=== PATIENT | male | born 1960 | race Caucasian/White ===

== ENCOUNTER 2017-06-22 03:37 | Inpatient (IN) | payer SELFPAY ==
[2017-06-22] VITALS (11 sets, daily range): BP systolic 97–129; BP diastolic 40–83
[~2017-06-22] VITALS: Ht 175.3 cm; Wt 55.6 kg
[~2017-06-22 03:37] MED LIST: ACET-93 PO; ATOR40TA70 PO; BACL10TA PO; CALC-654 PO; CALC-80; CLIN300C11 PO; CYCL10TA9 PO; DICL75TA2 PC; DICL75TA2 PO; FERR-84 PO; GABA-488 PO; HYDR-34; METF500T4 PO; MORP60TA28 PO; OMEP20CA6 PO; ONDA4TAB8 SL; OXYC-202 PO; OXYC-465 PO; OXYC10TA7 PO; PANT40TA2 PO; PEPCID; RANI150T11 PO; RANI150T90 PO; SUCR1TAB36 PO; TRAM-42 PO
--- OUTSIDE RECORDS SUMMARY | 2017-06-22 03:46 | XMS REPORT ---
Author JT Torres [facility] eClinicalWorks Address Unknown Phone Unavailable Care Team Providers Care Computer Forensics Examiner Name Role Phone JT SAHA CP Unavailable Allergies, Adverse Reactions, Alerts Substance Reaction Event Type Penicillin V Potassium Info Not Available Drug Allergy Problems Problem Type Condition Code Onset Dates Condition Status Problem Diabetes E11.9 Active Problem Anemia D64.9 Active Problem Edema R60.9 Active Problem Spasm of muscle 728.85 Active Assessment Anemia D64.9 Active Problem Pain in thoracic spine 724.1 Active Problem Diabetes mellitus without mention of complication, type II or unspecified type, not stated as uncontrolled 250.00 Active Medications Medication Code System Code Instructions Start Date End Date Status Dosage Metformin HCl [facility] 76568303688 500 MG TAKE ONE TABLET BY MOUTH TWICE DAILY AFTER FOOD Calcium [facility] 12092-65591 600 MG Orally Twice a day 1 tablet with meals Flexeril [facility] 46310031446 10 MG Orally Three times a day 1 tablet Diclofenac Sodium [facility] [address]-01 75 MG September 08, 2013 1 tablet by Oral route 2 times per day PRN p c Diphenhydramine ND 0 Oral 1 tab Tylenol [facility] [address]-83 325 MG Orally every 6 hrs 1 tablet as needed Polysaccharide Iron Complex [facility] [address]-93 150 MG Orally Once a day Jun 02, 2015 1 capsule Lipitor [facility] 82444947882 40 MG 1 tablet by Oral route 1 time per day hs Doxylamine Succinate (Sleep) [facility] [address]-77 25 MG Orally Once a day 1 tablet at bedtime as needed Procedures Procedure Coding System Code Date VENIPUNCT, ROUTINE* CPT-4 48516 Jul 04, 2015 Office Visit, Est Pt., Level 4 CPT-4 22022 Jul 04, 2015 COMPLETE CBC W/AUTO DIFF WBC CPT-4 14334 Jul 04, 2015 Vital Signs Date/Time: Jul 04, 2015 Temperature 98.0 F Weight 150.0 lbs Height 69 in BMI 22.15 Index Blood Pressure Diastolic 82 mmHg Blood Pressure Systolic 130 mmHg Cardiac Monitoring Heart Rate 110 bpm Results Name Result Date Reference Range Unit Abnormality Flag ROUTINE VENIPUNCTURE CBC ----MCHC 29.0 29555388 31.5-35.7 g/dL L ----MCH 21.4 12347967 26.6-33.0 pg L ----Platelets 526 [id number] 150-379 x10E3/uL H ----RDW 16.3 95500478 12.3-15.4 % H ----Immature Granulocytes 0 79102291 % ----Immature Grans (Abs) 0.0 34347928 0.0-0.1 x10E3/uL ----Lymphs 30 96054312 % ----Monocytes 9 02320221 % ----Neutrophils 52 36238677 % ----Neutrophils (Absolute) 3.8 95664457 1.4-7.0 x10E3/uL ----Hematocrit 26.2 86188319 37.5-51.0 % L ----Lymphs (Absolute) 2.1 47702433 0.7-3.1 x10E3/uL ----MCV 74 63642042 79-97 fL L ----RBC 3.55 35563043 4.14-5.80 x10E6/uL L ----Eos 8 89354928 % ----Basos 1 88688902 % ----Hemoglobin 7.6 29778734 12.6-17.7 g/dL L ----Baso (Absolute) 0.1 [id number] 0.0-0.2 x10E3/uL ----WBC 7.3 99442475 3.4-10.8 x10E3/uL ----Monocytes(Absolute) 0.7 [id number] 0.1-0.9 x10E3/uL ----Eos (Absolute) 0.6 [id number] 0.0-0.4 x10E3/uL H Summary Purpose eClinicalWorks Submission
--- OUTSIDE RECORDS SUMMARY | 2017-06-22 03:47 | XMS REPORT ---
Author Author JT SAHA Organization eClinicalWorks Address Unknown Phone Unavailable Care Team Providers Care Stunt Woman Name Role Phone JT SAHA CP Unavailable Allergies No Known Allergies Problems Problem Type Condition Code Onset Dates Condition Status Problem Diabetes mellitus without mention of complication, type II or unspecified type, not stated as uncontrolled 250.00 Active Problem Spasm of muscle 728.85 Active Problem Pain in thoracic spine 724.1 Active Medications Medication Code System Code Instructions Start Date End Date Status Dosage MS Contin NDC [address]-95 60 MG 3 a day for week 1, 2 a day for week 2, 1 a day for week 3, 1/2 tab for week 4, then done every 8 hours September 14, 2014 1 tablet oxycodone NDC 0 10 mg 2 times a day for week 1, 1/2 tablet 2 times a day week 2, 1/2 tablet daily week 3, then done September 14, 2014 1 tablet Results No Known Results Summary Purpose eClinicalWorks Submission
--- OUTSIDE RECORDS SUMMARY | 2017-06-22 03:47 | XMS REPORT ---
Author JT Torres [facility] eClinicalWorks Address Unknown Phone Unavailable Care Team Providers Care Circular Clerk Name Role Phone JT SAHA CP Unavailable Allergies, Adverse Reactions, Alerts Substance Reaction Event Type Penicillin V Potassium Info Not Available Drug Allergy Problems Problem Type Condition Code Onset Dates Condition Status Problem Anemia D64.9 Active Problem Pain in thoracic spine 724.1 Active Problem Diabetes E11.9 Active Assessment Edema R60.9 Active Assessment Diabetes E11.9 Active Problem Diabetes mellitus without mention of complication, type II or unspecified type, not stated as uncontrolled 250.00 Active Problem Spasm of muscle 728.85 Active Medications Medication Code System Code Instructions Start Date End Date Status Dosage Calcium [facility]NOTE 2] 52[address]103 600 MG Orally Twice a day 1 tablet with meals Lipitor [facility]NOTE 2] 51876712162 40 MG 1 tablet by Oral route 1 time per day hs Metformin HCl [facility]NOTE 2] 21901795732 500 MG TAKE ONE TABLET BY MOUTH TWICE DAILY AFTER FOOD Diclofenac Sodium [facility][NOTE 2] [address]-73 75 MG September 08, 2013 1 tablet by Oral route 2 times per day PRN p c Tylenol [facility][NOTE 2] [address]-60 325 MG Orally every 6 hrs 1 tablet as needed Diphenhydramine ND 0 Oral 1 tab Doxylamine Succinate (Sleep) [facility]NOTE 2] [address]-58 25 MG Orally Once a day 1 tablet at bedtime as needed Polysaccharide Iron Complex [facility]NOTE 2] [address]-99 150 MG Orally Once a day Jun 02, 2015 1 capsule Gabapentin [facility]NOTE 2] 00213840944 300 MG Orally Three times a day 1 capsule Flexeril ND 22215831118 10 MG Orally Three times a day 1 tablet Procedures Procedure Coding System Code Date Office Visit, Est Pt., Level 3 CPT-4 12103 Jun 13, 2015 GLYCATED HEMOGLOBIN TEST CPT-4 21723 Jun 13, 2015 Vital Signs Date/Time: Jun 13, 2015 Temperature 98.7 F Weight 148 lbs Height 69 in BMI 21.85 Index Blood Pressure Diastolic 68 mmHg Blood Pressure Systolic 134 mmHg Cardiac Monitoring Heart Rate 120 bpm Results Name Result Date Reference Range Unit Abnormality Flag A1C (IN HOUSE) ----A1C IN HOUSE 6.3 [id number] 4.30 - 5.6 % ----Previous A1c 6.5 20150613 ----Lot # [id number] ----Exp date [id number] Summary Purpose eClinicalWorks Submission
--- OUTSIDE RECORDS SUMMARY | 2017-06-22 03:47 | XMS REPORT ---
Author Author JT SAHA Organization eClinicalWorks Address Unknown Phone Unavailable Care Team Providers Care Tattoo And Body Artist Name Role Phone JT SAHA CP Unavailable [...] not stated as uncontrolled 250.00 Active Medications No Known Medications Results No Known Results Summary Purpose eClinicalWorks Submission
--- OUTSIDE RECORDS SUMMARY | 2017-06-22 03:47 | XMS REPORT ---
Author Author JT SAHA Organization eClinicalWorks Address Unknown Phone Unavailable Care Team Providers Care Fisheries Manager Name Role Phone JT SAHA CP Unavailable Allergies No Known Allergies Problems Problem Type Condition Code Onset Dates Condition Status Problem Anemia D64.9 Active Problem Pain in thoracic spine 724.1 Active Problem Diabetes E11.9 Active Problem Diabetes mellitus without mention of complication, type II or unspecified type, not stated as uncontrolled 250.00 Active Problem Spasm of muscle 728.85 Active Medications Medication Code System Code Instructions Start Date End Date Status Dosage Flexeril [facility] 58425244552 10 MG Orally Three times a day 1 tablet Results No Known Results Summary Purpose eClinicalWorks Submission
--- OUTSIDE RECORDS SUMMARY | 2017-06-22 03:47 | XMS REPORT ---
Author JT Torres Organization eClinicalWorks Address Unknown Phone Unavailable Care Team Providers Care Ramp Service Man Name Role Phone JT SAHA CP Unavailable [...]
--- OUTSIDE RECORDS SUMMARY | 2017-06-22 03:47 | XMS REPORT ---
Author Author JT SAHA Organization eClinicalWorks Address Unknown Phone Unavailable Care Team Providers Care Electronic Warfare Linguist Name Role Phone JT SAHA CP Unavailable Allergies No Known Allergies Problems Problem Type Condition ICD-9 Code Onset Dates Condition Status Problem Diabetes mellitus without mention of complication, type II or unspecified type, not stated as uncontrolled 250.00 Active Problem Spasm of muscle 728.85 Active Problem Pain in thoracic spine 724.1 Active Medications Medication Code System Code Instructions Start Date End Date Status Dosage oxycodone NDC 0 10 mg 2 times a day September 14, 2014 take 1 [place] [address]-47 60 MG every 8 hours September 14, 2014 1 tablet Baclofen [facility] [address]-34 10 MG Orally Three times a day December 07, 2014 Mar 07, 2015 1 tablet with food or milk Results No Known Results Summary Purpose eClinicalWorks Submission
--- OUTSIDE RECORDS SUMMARY | 2017-06-22 03:47 | XMS REPORT ---
Author JT Torres [facility] eClinicalWorks Address Unknown Phone Unavailable Care Team Providers Care Engine Mechanic Name Role Phone JT SAHA CP Unavailable Allergies, Adverse Reactions, Alerts Substance Reaction Event Type Penicillin V Potassium Info Not Available Drug Allergy Problems Problem Type Condition Code Onset Dates Condition Status Assessment Edema R60.9 Active Problem Diabetes E11.9 Active Problem Anemia D64.9 Active Problem Edema R60.9 Active Problem Spasm of muscle 728.85 Active Assessment Anemia D64.9 Active Problem Pain in thoracic spine 724.1 Active Problem Diabetes mellitus without mention of complication, type II or unspecified type, not stated as uncontrolled 250.00 Active Medications Medication Code System Code Instructions Start Date End Date Status Dosage Metformin HCl [facility] 92434121679 500 MG TAKE ONE TABLET BY MOUTH TWICE DAILY AFTER FOOD Calcium [facility] [address]88 600 MG Orally Twice a day 1 tablet with meals Tylenol [facility] [address]-84 325 MG Orally every 6 hrs 1 tablet as needed Lipitor [facility] 36187449665 40 MG 1 tablet by Oral route 1 time per day hs Doxylamine Succinate (Sleep) [facility] [address]-23 25 MG Orally Once a day 1 tablet at bedtime as needed Diphenhydramine [facility] 0 Oral 1 tab Flexeril [facility] 45505330001 10 MG Orally Three times a day 1 tablet Polysaccharide Iron Complex [facility] [address]-68 150 MG Orally Once a day Jun 02, 2015 1 capsule Diclofenac Sodium [facility] [address]-47 75 MG September 08, 2013 1 tablet by Oral route 2 times per day PRN p c Procedures Procedure Coding System Code Date NATRIURETIC PEPTIDE CPT-4 62836 Jun 20, 2015 VENIPUNCT, ROUTINE* CPT-4 71664 Jun 20, 2015 COMPLETE CBC W/AUTO DIFF WBC CPT-4 83250 Jun 20, 2015 Office Visit, Est Pt., Level 4 CPT-4 56949 Jun 20, 2015 Vital Signs Date/Time: Jun 20, 2015 Temperature 97.0 F Weight 147 lbs Height 69 in BMI 21.71 Index Blood Pressure Diastolic 88 mmHg Blood Pressure Systolic 142 mmHg Cardiac Monitoring Heart Rate 88 bpm Results Name Result Date Reference Range Unit Abnormality Flag BNP ----B-Type Natriuretic Peptide 9.1 [id number] 0.0-100.0 pg/mL ROUTINE VENIPUNCTURE CBC ----MCHC 29.5 26905916 31.5-35.7 g/dL L ----MCH 21.6 14824619 26.6-33.0 pg L ----Platelets 1228 17369472 150-379 x10E3/uL > ----RDW 15.3 18091805 12.3-15.4 % ----Lymphs 44 17525594 % ----Monocytes 2 16766106 % ----Neutrophils 49 78029671 % ----Neutrophils (Absolute) 3.8 46337183 1.4-7.0 x10E3/uL ----Hematocrit 26.8 87854507 37.5-51.0 % L ----Lymphs (Absolute) 3.4 64864481 0.7-3.1 x10E3/uL H ----MCV 73 39666852 79-97 fL L ----RBC 3.65 54422588 4.14-5.80 x10E6/uL L ----Eos 5 07759046 % ----Basos 0 13264313 % ----Hemoglobin 7.9 29405826 12.6-17.7 g/dL L ----Baso (Absolute) 0.0 88443030 0.0-0.2 x10E3/uL ----WBC 7.8 65638221 3.4-10.8 x10E3/uL ----Monocytes(Absolute) 0.2 56014201 0.1-0.9 x10E3/uL ----Eos (Absolute) 0.4 95133638 0.0-0.4 x10E3/uL Summary Purpose eClinicalWorks Submission
--- OUTSIDE RECORDS SUMMARY | 2017-06-22 03:47 | XMS REPORT ---
Author Author JT SAHA Organization eClinicalWorks Address Unknown Phone Unavailable Care Team Providers Care Blending Tank Helper Name Role Phone JT SAHA CP Unavailable Allergies No Known Allergies Problems Problem Type Condition ICD-9 Code Onset Dates Condition Status Problem Diabetes mellitus without mention of complication, type II or unspecified type, not stated as uncontrolled 250.00 Active Problem Spasm of muscle 728.85 Active Problem Pain in thoracic spine 724.1 Active Medications No Known Medications Results No Known Results Summary Purpose eClinicalWorks Submission
--- OUTSIDE RECORDS SUMMARY | 2017-06-22 03:48 | XMS REPORT ---
Author JT Torres [facility] eClinicalWorks Address Unknown Phone Unavailable Care Team Providers Care Pick Up Operator Name Role Phone JT SAHA CP Unavailable Allergies, Adverse Reactions, Alerts Substance Reaction Event Type Penicillin V Potassium Info Not Available Drug Allergy Problems Problem Type Condition Code Onset Dates Condition Status Problem Diabetes mellitus without mention of complication, type II or unspecified type, not stated as uncontrolled 250.00 Active Problem Spasm of muscle 728.85 Active Problem Pain in thoracic spine 724.1 Active Assessment Weakness R53.1 Active Assessment 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 Medications Medication Code System Code Instructions Start Date End Date Status Dosage Flexeril [facility] 20623761636 10 MG Orally Three times a day 1 tablet Ibuprofen [facility] [address]-33 200 MG Orally every 6 hrs 1 tablet as needed Calcium [facility] 99987-88541 600 MG Orally Twice a day 1 tablet with meals metformin NDC 0 500 mg Apr 09, 2013 take 1 tablet by Oral route 2 times per day p c Baclofen [facility] [address]-95 10 MG Orally Three times a day Mar 16, 2015 2 tablet with food or milk Diclofenac Sodium [facility] [address]-39 75 MG September 08, 2013 1 tablet by Oral route 2 times per day PRN p c Prilosec OTC [facility] 18815-68061 20 MG Orally Once a day 1 tablet Doxylamine Succinate (Sleep) [facility] [address]-28 25 MG Orally Once a day 1 tablet at bedtime as needed Lipitor ND 36053169490 40 MG 1 tablet by Oral route 1 time per day hs Gabapentin [facility] [address]-42 300 MG Orally Three times a day May 12, 2015 1 capsule Diphenhydramine ND 0 Oral 1 tab Metformin HCl [facility] 09987208020 500 MG TAKE ONE TABLET BY MOUTH TWICE DAILY AFTER FOOD Procedures Procedure Coding System Code Date COMPREHEN METABOLIC PANEL CPT-4 78653 May 16, 2015 VENIPUNCT, ROUTINE* CPT-4 57907 May 16, 2015 COMPLETE CBC W/AUTO DIFF WBC CPT-4 49257 May 16, 2015 Office Visit, Est Pt., Level 4 CPT-4 53508 May 16, 2015 Vital Signs Date/Time: May 16, 2015 Temperature 98.6 F Weight 142.8 lbs Height 69 in BMI 21.09 Index Blood Pressure Diastolic 84 mmHg Blood Pressure Systolic 130 mmHg Cardiac Monitoring Heart Rate 92 bpm Results Name Result Date Reference Range Unit Abnormality Flag ROUTINE VENIPUNCTURE CMP ----Sodium, Serum 145 83870006 134-144 mmol/L H ----BUN/Creatinine Ratio 13 20150516 9-20 ----Chloride, Serum 108 15844334 97-108 mmol/L ----Potassium, Serum 4.8 53978783 3.5-5.2 mmol/L ----Calcium, Serum 9.0 20882680 8.7-10.2 mg/dL ----Protein, Total, Serum 5.7 75095442 6.0-8.5 g/dL L ----Carbon Dioxide, Total 23 20150516 18-29 mmol/L ----A/G Ratio 1.4 81555295 1.1-2.5 ----eGFR If NonAfricn Am 97 78058142 >59 mL/min/1.73 ----Bilirubin, Total 0.3 45670456 0.0-1.2 mg/dL ----eGFR If Africn Am 112 59494641 >59 mL/min/1.73 ----BUN 12 94470683 6-24 mg/dL ----Albumin, Serum 3.3 07380298 3.5-5.5 g/dL L ----Globulin, Total 2.4 74194955 1.5-4.5 g/dL ----Creatinine, Serum 0.89 16974273 0.76-1.27 mg/dL ----ALT (SGPT) 39 62196133 0-44 IU/L ----Glucose, Serum 115 95123322 65-99 mg/dL H ----Alkaline Phosphatase, S 77 79791035 39-117 IU/L ----AST (SGOT) 36 16913603 0-40 IU/L Summary Purpose eClinicalWorks Submission
--- OUTSIDE RECORDS SUMMARY | 2017-06-22 03:48 | XMS REPORT ---
Author Author JT SAHA Organization eClinicalWorks Address Unknown Phone Unavailable Care Team Providers Care Lockstitch Back Maker Name Role Phone JT SAHA CP Unavailable Allergies No Known Allergies Problems Problem Type Condition Code Onset Dates Condition Status Problem Pain in thoracic spine 724.1 Active Problem Diabetes mellitus without mention of complication, type II or unspecified type, not stated as uncontrolled 250.00 Active Problem Anemia D64.9 Active Problem Spasm of muscle 728.85 Active Medications No Known Medications Results No Known Results Summary Purpose eClinicalWorks Submission
--- OUTSIDE RECORDS SUMMARY | 2017-06-22 03:48 | XMS REPORT ---
Author JT Torres Organization eClinicalWorks Address Unknown Phone Unavailable Care Team Providers Care Stitchdown Toe Former Name Role Phone JT SAHA CP Unavailable [...]
--- OUTSIDE RECORDS SUMMARY | 2017-06-22 03:48 | XMS REPORT ---
Author JT Torres [facility] eClinicalWorks Address Unknown Phone Unavailable Care Team Providers Care Photographic Machine Operator Name Role Phone JT SAHA CP [...] Instructions Start Date End Date Status Dosage Gabapentin [facility] [address]-70 300 MG Orally Three times a day May 12, 2015 1 capsule Results No Known Results Summary Purpose eClinicalWorks Submission
--- OUTSIDE RECORDS SUMMARY | 2017-06-22 03:48 | XMS REPORT ---
Author JT Torres [facility] eClinicalWorks Address Unknown Phone Unavailable Care Team Providers Care Lithograph Operator Name Role Phone JT SAHA CP [...] Pain in thoracic spine 724.1 Active Assessment Drug overdose, multiple drugs T50.901A Active Medications Medication Code System Code Instructions Start Date End Date Status Dosage Flexeril [facility] 95213381274 10 MG Orally Three times a day 1 tablet oxycodone ND 0 10 mg 2 times a day for week 1, 1/2 tablet 2 times a day week 2, 1/2 tablet daily week 3, then done September 14, 2014 1 tablet Prilosec OTC [facility] 12[address]-46750 20 MG Orally Once a day 1 tablet Ibuprofen [facility] [address]-58 200 MG Orally every 6 hrs 1 tablet as needed Doxylamine Succinate (Sleep) [facility] [address]-29 25 MG Orally Once a day 1 tablet at bedtime as needed MS Contin [facility] [address]-29 60 MG 3 a day for week 1, 2 a day for week 2, 1 a day for week 3, 1/2 tab for week 4, then done every 8 hours September 14, 2014 1 tablet Guaifenesin [facility] [address]-79 200 MG Orally every 4 hrs 1 tablet as needed Diphenhydramine NDC 0 Oral 1 tab Calcium [facility] 72026-38610 600 MG Orally Twice a day 1 tablet with meals Sennosides [facility] [address]-11 25 MG Orally 2 tablets as needed Metformin HCl [facility] 05914985915 500 MG TAKE ONE TABLET BY MOUTH TWICE DAILY AFTER FOOD metformin NDC 0 500 mg Apr 09, 2013 take 1 tablet by Oral route 2 times per day p c Diclofenac Sodium [facility] [address]-73 75 MG September 08, 2013 1 tablet by Oral route 2 times per day PRN p c Baclofen [facility] [address]-39 10 MG Orally Three times a day Mar 16, 2015 2 tablet with food or milk Lipitor [facility] 03284484091 40 MG 1 tablet by Oral route 1 time per day hs Procedures Procedure Coding System Code Date Office Visit, Est Pt., Level 2 CPT-4 91567 Apr 26, 2015 Vital Signs Date/Time: Apr 26, 2015 Temperature 98.0 F Weight 144.0 lbs Height 69 in BMI 21.26 Index Blood Pressure Diastolic 78 mmHg Blood Pressure Systolic 146 mmHg Cardiac Monitoring Heart Rate 80 bpm Results No Known Results Summary Purpose eClinicalWorks Submission
--- OUTSIDE RECORDS SUMMARY | 2017-06-22 03:48 | XMS REPORT ---
Author JT Torres [facility] eClinicalWorks Address Unknown Phone Unavailable Care Team Providers Care Escrow Secretary Name Role Phone JT SAHA CP Unavailable [...] Pain in thoracic spine 724.1 Active Assessment Upper back pain M54.9 Active Medications Medication Code System Code Instructions Start Date End Date Status Dosage Diclofenac Sodium [facility] [address]-41 75 MG September 08, 2013 1 tablet by Oral route 2 times per day PRN p c Flexeril [facility] [address]-20 10 MG Orally Three times a day September 15, 2014 1 tablet Lipitor [facility] 81745158273 40 MG 1 tablet by Oral route 1 time per day hs oxycodone ND 0 10 mg 2 times a day September 14, 2014 take 1 tablet as needed Baclofen [facility] [address]-55 10 MG Orally Three times a day Mar 16, 2015 2 tablet with food or milk Metformin HCl [facility] 26601119199 500 MG TAKE ONE TABLET BY MOUTH TWICE DAILY AFTER FOOD MS Contin [facility] [address]-51 60 MG every 8 hours September 14, 2014 1 tablet Procedures Procedure Coding System Code Date Office Visit, Est Pt., Level 2 CPT-4 74292 Mar 31, 2015 Vital Signs Date/Time: Mar 31, 2015 Temperature 97.7 F Weight 145.8 lbs Height 69 in BMI 21.53 Index Blood Pressure Diastolic 60 mmHg Blood Pressure Systolic 122 mmHg Cardiac Monitoring Heart Rate 84 bpm Results No Known Results Summary Purpose eClinicalWorks Submission
--- OUTSIDE RECORDS SUMMARY | 2017-06-22 03:48 | XMS REPORT ---
Author JT Torres [facility] eClinicalWorks Address Unknown Phone Unavailable Care Team Providers Care Calender Roll Operator Name Role Phone JT SAHA CP [...] Pain in thoracic spine 724.1 Active Assessment Altered mental state R41.82 Active Assessment Illicit drug use F19.90 Active Medications Medication Code System Code Instructions Start Date End Date Status Dosage Diclofenac Sodium [facility] [address]-61 75 MG September 08, 2013 1 tablet by Oral route 2 times per day PRN p c Baclofen [facility] [address]-26 10 MG Orally Three times a day Mar 16, 2015 2 tablet with food or milk Calcium [facility] 70[address]-82473 600 MG Orally Twice a day 1 tablet with meals Lipitor [facility] 90408478254 40 MG 1 tablet by Oral route 1 time per day hs Prilosec OTC [facility] 48582-11727 20 MG Orally Once a day 1 tablet Diphenhydramine [facility] 0 Oral 1 tab Flexeril [facility] 42036180129 10 MG Orally Three times a day 1 tablet Ibuprofen [facility] [address]-81 200 MG Orally every 6 hrs 1 tablet as needed Metformin HCl [facility] 20966532005 500 MG TAKE ONE TABLET BY MOUTH TWICE DAILY AFTER FOOD Doxylamine Succinate (Sleep) [facility] [address]-12 25 MG Orally Once a day 1 tablet at bedtime as needed Procedures Procedure Coding System Code Date Office Visit, Est Pt., Level 4 CPT-4 35001 May 13, 2015 DRUG SCREEN NON TLC DEVICES CPT-4 65543 May 13, 2015 Vital Signs Date/Time: May 13, 2015 Temperature 98.0 F Weight 141 lbs Height 69 in BMI 20.82 Index Blood Pressure Diastolic 76 mmHg Blood Pressure Systolic 132 mmHg Cardiac Monitoring Heart Rate 90 bpm Results Name Result Date Reference Range Unit Abnormality Flag URINE DRUG SCREEN (IN HOUSE) Summary Purpose eClinicalWorks Submission
--- OUTSIDE RECORDS SUMMARY | 2017-06-22 03:49 | XMS REPORT ---
Author Author JT SAHA Organization e[employer] Address Unknown Phone Unavailable Care Team Providers Care Sensor Operator Name Role Phone JT SAHA CP Unavailable Allergies, Adverse Reactions, Alerts Substance Reaction Event Type Penicillin V Potassium Info Not Available Drug Allergy Problems Problem Type Condition ICD-9 Code Onset Dates Condition Status Problem Diabetes mellitus without mention of complication, type II or unspecified type, not stated as uncontrolled 250.00 Active Problem Spasm of muscle 728.85 Active Problem Pain in thoracic spine 724.1 Active Assessment Muscle spasm 728.85 Active Medications Medication Code System Code Instructions Start Date End Date Status Dosage Diclofenac Sodium [facility] [address]-50 75 MG September 08, 2013 1 tablet by Oral route 2 times [place] [address]-65 10 MG Orally Three times a day September 15, 2014 1 tablet oxycodone NDC 0 10 mg 2 times a day September 14, 2014 take 1 tablet as needed metformin NDC 0 500 mg Apr 09, 2013 take 1 tablet by Oral route 2 times [place] [address]-59 40 MG Jul 06, 2014 1 tablet by Oral route 1 time [place] [address]-83 10 MG Orally Three times a day December 07, 2014 Mar 07, 2015 1 tablet with food or milk MS Contin [facility] [address]-83 60 MG every 8 hours September 14, 2014 1 tablet Procedures Procedure Coding System Code Date Office Visit, Est Pt., Level 2 CPT-4 33645 Mar 03, 2015 Vital Signs Date/Time: Mar 03, 2015 Temperature 97.4 F Weight 151.4 lbs Height 69 in BMI 22.36 Index Blood Pressure Diastolic 70 mmHg Blood Pressure Systolic 112 mmHg Cardiac Monitoring Heart Rate 82 bpm Results No Known Results Summary Purpose eClinicalWorks Submission
--- OUTSIDE RECORDS SUMMARY | 2017-06-22 03:49 | XMS REPORT ---
Author Author JT SAHA Organization [employer] Address Unknown Phone Unavailable Care Team Providers Care Nurse Substance Abuse Name Role Phone JT SAHA CP Unavailable Allergies No Known Allergies Problems Problem Type Condition Code Onset Dates Condition Status Problem Pain in thoracic spine 724.1 Active Problem Diabetes mellitus without mention of complication, type II or unspecified type, not stated as uncontrolled 250.00 Active Problem Anemia D64.9 Active Problem Spasm of muscle 728.85 Active Assessment Hyperkalemia 276.7 Active Medications No Known Medications Procedures Procedure Coding System Code Date ASSAY OF FERRITIN CPT-4 36417 May 17, 2015 VENIPUNCT, ROUTINE* CPT-4 49097 May 17, 2015 Results Name Result Date Reference Range Unit Abnormality Flag ROUTINE VENIPUNCTURE Summary Purpose eClinicalWorks Submission
--- OUTSIDE RECORDS SUMMARY | 2017-06-22 03:49 | XMS REPORT ---
Author Author JT SAHA [facility] eClinicalWorks Address Unknown Phone Unavailable Care Team Providers Care Biometrics Technician Name Role Phone JT SAHA CP Unavailable [...] Date End Date Status Dosage MS Contin [facility] [address]-05 60 MG week 1- 3 a day, week 2- 2 a day, week 3 - 1 a day September 14, 2014 1 tablet MS Contin [facility] [address]-01 30 MG Orally Once a day Apr 26, 2015 May 03, 2015 1 tablet Results No Known Results Summary Purpose eClinicalWorks Submission
--- OUTSIDE RECORDS SUMMARY | 2017-06-22 03:49 | XMS REPORT ---
Author Author JT SAHA Organization [employer] Address Unknown Phone Unavailable Care Team Providers Care Law Researcher Name Role Phone JT SAHA CP Unavailable Allergies, Adverse Reactions, Alerts Substance Reaction Event Type Penicillin V Potassium Info Not Available Drug Allergy Problems Problem Type Condition Code Onset Dates Condition Status Problem Pain in thoracic spine 724.1 Active Problem Diabetes mellitus without mention of complication, type II or unspecified type, not stated as uncontrolled 250.00 Active Problem Anemia D64.9 Active Assessment Iron deficiency anemia D50.9 Active Problem Spasm of muscle 728.85 Active Assessment Syncope R55 Active Medications Medication Code System Code Instructions Start Date End Date Status Dosage Ibuprofen [facility] [address]-83 200 MG Orally every 6 hrs 1 tablet as needed Calcium [facility] 43087-[address]24 600 MG Orally Twice a day 1 tablet with meals Flexeril [facility] 04932628620 10 MG Orally Three times a day 1 tablet Diclofenac Sodium [facility] [address]-08 75 MG September 08, 2013 1 tablet by Oral route 2 times per day PRN p c Doxylamine Succinate (Sleep) [facility] [address]-20 25 MG Orally Once a day 1 tablet at bedtime as needed Gabapentin [facility] 37339372920 300 MG Orally Three times a day 1 capsule Polysaccharide Iron Complex [facility] [address]-89 150 MG Orally Once a day Jun 02, 2015 1 capsule Lipitor [facility] 05781458901 40 MG 1 tablet by Oral route 1 time per day hs Metformin HCl [facility] 67462405281 500 MG TAKE ONE TABLET BY MOUTH TWICE DAILY AFTER FOOD Diphenhydramine NDC 0 Oral 1 tab Procedures Procedure Coding System Code Date Office Visit, Est Pt., Level 3 CPT-4 40212 Jun 02, 2015 Vital Signs Date/Time: Jun 02, 2015 Temperature 98.0 F Weight 143 lbs Height 69 in BMI 21.12 Index Blood Pressure Diastolic 82 mmHg Blood Pressure Systolic 120 mmHg Cardiac Monitoring Heart Rate 90 bpm Results No Known Results Summary Purpose eClinicalWorks Submission
--- OUTSIDE RECORDS SUMMARY | 2017-06-22 03:49 | XMS REPORT ---
Author Author JT SAHA Organization [employer] Address Unknown Phone Unavailable Care Team Providers Care Ditto Machine Operator Name Role Phone JT SAHA CP Unavailable Allergies No Known Allergies Problems Problem Type Condition Code Onset Dates Condition Status Problem Pain in thoracic spine 724.1 Active Problem Diabetes mellitus without mention of complication, type II or unspecified type, not stated as uncontrolled 250.00 Active Problem Anemia D64.9 Active Assessment Gastritis K29.70 Active Problem Spasm of muscle 728.85 Active Assessment Anemia D64.9 Active Medications Medication Code System Code Instructions Start Date End Date Status Dosage Zantac [facility] [address]-07 150 MG Orally Twice a day May 17, 2015 1 tablet Procedures Procedure Coding System Code Date ASSAY OF FERRITIN CPT-4 53746 May 17, 2015 Results No Known Results Summary Purpose eClinicalWorks Submission
--- OUTSIDE RECORDS SUMMARY | 2017-06-22 03:49 | XMS REPORT ---
Author JT Torres [facility] eClinicalWorks Address Unknown Phone Unavailable Care Team Providers Care Smearer Name Role Phone JT SAHA CP Unavailable Allergies, Adverse Reactions, Alerts Substance Reaction Event Type Penicillin V Potassium Info Not Available Drug Allergy Problems Problem Type Condition Code Onset Dates Condition Status Problem Pain in thoracic spine 724.1 Active Problem Diabetes mellitus without mention of complication, type II or unspecified type, not stated as uncontrolled 250.00 Active Problem Anemia D64.9 Active Assessment Cellulitis L03.90 Active Problem Spasm of muscle 728.85 Active Assessment Edema R60.9 Active Medications Medication Code System Code Instructions Start Date End Date Status Dosage Diphenhydramine ND 0 Oral 1 tab Polysaccharide Iron Complex [facility] [address]-89 150 MG Orally Once a day Jun 02, 2015 1 capsule Diclofenac Sodium [facility] [address]-53 75 MG September 08, 2013 1 tablet by Oral route 2 times per day PRN p c Flexeril [facility] 25258228942 10 MG Orally Three times a day 1 tablet Ibuprofen [facility] [address]-55 200 MG Orally every 6 hrs 1 tablet as needed Metformin HCl [facility] 86594863142 500 MG TAKE ONE TABLET BY MOUTH TWICE DAILY AFTER FOOD Gabapentin [facility] 44452113964 300 MG Orally Three times a day 1 capsule Lipitor [facility] 87818391300 40 MG 1 tablet by Oral route 1 time per day hs Doxylamine Succinate (Sleep) [facility] [address]-48 25 MG Orally Once a day 1 tablet at bedtime as needed Calcium [facility] [place] [address] 600 MG Orally Twice a day 1 tablet with meals Keflex [facility] [address]-68 500 MG Orally Four times a day Jun 06, 2015 Jun 13, 2015 1 capsule Procedures Procedure Coding System Code Date VENIPUNCT, ROUTINE* CPT-4 54413 Jun 06, 2015 Office Visit, Est Pt., Level 4 CPT-4 59098 Jun 06, 2015 COMPREHEN METABOLIC PANEL CPT-4 77523 Jun 06, 2015 Vital Signs Date/Time: Jun 06, 2015 Temperature 98.4 F Weight 143.8 lbs Height 69 in BMI 21.23 Index Blood Pressure Diastolic 80 mmHg Blood Pressure Systolic 142 mmHg Cardiac Monitoring Heart Rate 90 bpm Results Name Result Date Reference Range Unit Abnormality Flag ROUTINE VENIPUNCTURE Summary Purpose eClinicalWorks Submission
--- OUTSIDE RECORDS SUMMARY | 2017-06-22 03:50 | XMS REPORT ---
Author Author JT SAHA Organization e[employer] Address Unknown Phone Unavailable Care Team Providers Care Label Press Operator Name Role Phone JT SAHA CP [...] End Date Status Dosage MS Contin NDC [address]-73 60 MG every 8 hours September 14, 2014 1 tablet oxycodone NDC 0 10 mg 2 times a day September 14, 2014 take 1 tablet as needed Results No Known Results Summary Purpose eClinicalWorks Submission
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
[2017-06-22] MEDS ORDERED: KETOROLAC 30 MG/ML VIAL IM ONE (04:15)
--- NOTE | 2017-06-22 04:18 | ED GI ---
General Chief Complaint: General Problems/Pain Stated Complaint: HYPERVENTILATING, GROIN PAIN,FELT A POP IN GROIN Nursing Triage Note: PT TO ED 5 W/ C/O RT GROIN PAIN ONSET YESTERDAY AFTER FEELING A "POP". REPORTS HE NOW HAS A KNOT THERE. PT ALSO REPORTS HE WOKE FROM HIS SLEEP THIS AM AT 0300 "HYPERVENTILATING". Sepsis Screen: No Definite Risk Source of Information: Patient Exam Limitations: No Limitations History of Present Illness Time Seen By Provider: 04:13 Initial Comments Patient presents to ER by private conveyance with a chief complaint that last night while walking up his stairs to his home he felt a popping sensation and then a bulge in his right groin. He has not taken any Tylenol, Motrin, pain medicine or heating pads to that. Since that time he had a bowel movement that was normal regular and formed. He is not having any nausea but he did vomit one time earlier. Patient has no history of abdominal surgeries or inguinal hernias. The only surgery she's had is on his right shoulder. Patient does not smoke but does chew tobacco. Last oral intake was at 0 200 water. Allergies and Home Medications Allergies Coded Allergies: Penicillins (Unverified Allergy, Mild, 05/29/09) Home Medications Acetaminophen 500 Mg Tablet, 1,000 MG PO Q8H, (Reported) Atorvastatin Calcium 40 Mg Tablet, 1 TAB PO DAILY, #30 (Reported) Calcium Carbonate/Vitamin D3 1 Each Tablet, 4 EACH PO TID, #0 Prescribed by: DAREN WANG on 07/06/15 0815 Cyclobenzaprine HCl 10 Mg Tablet, 1 TAB PO TID PRN for PAIN, #90 (Reported) Diclofenac Sodium 75 Mg Tablet.dr, 1 TAB PC BID, #60 (Reported) Metformin HCl 500 Mg Tablet, 1 TAB PO BID, #60 (Reported) Ranitidine HCl 150 Mg Tablet, 1 TAB PO BID, #60 (Reported) Tramadol HCl 50 Mg Tablet, 1-2 TAB PO Q4H PRN for PAIN, #15 Prescribed by: AMANDA THEODORE on 01/01/16 9305 Review of Systems Constitutional: No chills, No fever, No malaise Respiratory: Denies Cough, Denies Shortness of Air Cardiovascular: Denies Chest Pain, Denies Lightheadedness Gastrointestinal: See HPI, Denies Abdomen Distended, Abdominal Pain (right inguinal), Denies Constipated, Denies Diarrhea, Denies Nausea, Vomiting (times one yesterday) Genitourinary: Denies Burning, Denies Discharge Musculoskeletal: No back pain, No joint pain Skin: No pruritus, No rash Past Qigaaoz-Vyibat-Zyybhf Hx Patient Social History Alcohol Use: Denies Use Recreational Drug Use: No Smoking Status: Never a Smoker Type Used: Smokeless Tobacco Recent Foreign Travel: No Contact w/Someone Who Travel: No Recent Infectious Disease Expo: No Recent Hopitalizations: No Physical Abuse: No Sexual Abuse: No Mistreated: No Fear: No Seasonal Allergies Seasonal Allergies: No Surgeries History of Surgeries: Yes (BILATERAL SHOULDER) Surgeries: Orthopedic Respiratory History of Respiratory Disorde: Yes Respiratory Disorders: Asthma Cardiovascular History of Cardiac Disorders: Yes Cardiac Disorders: High Cholesterol Neurological History of Neurological Disord: No Reproductive System Hx Reproductive Disorders: No Gastrointestinal History of Gastrointestinal Di: Yes Gastrointestinal Disorders: Gastroesophageal Reflux Musculoskeletal History of Musculoskeletal Dis: Yes (CHRONIC BACK, SHOULDER PAIN, rupture disc) Musculoskeletal Disorders: Chronic Back Pain Endocrine History of Endocrine Disorders: Yes Endocrine Disorders: Diabetes, Non-Insulin dep Cancer History of Cancer: No Psychosocial History of Psychiatric Problem: No Suicide Risk Score: 0 Integumentary History of Skin or Integumenta: No Blood Transfusions History of Blood Disorders: Yes (ANEMIA-GI BLEED) Adverse Reaction to a Blood Tr: No Family Medical History Family Medial History: Unknown Physical Exam Vital Signs VS - Last 72 Hours, by Label 06/22/17 03:48 Temp 96.9 Pulse 83 Resp 20 B/P (MAP) 137/80 (99) Pulse Ox 97 O2 Delivery Room Air Capillary Refill : Less Than 3 Seconds General Appearance: WD/WN, mild distress HEENT: PERRL/EOMI, pharynx normal (tobacco stains and chewing tobacco presently mouth but oral mucosa is moist.) Neck: non-tender, normal inspection Respiratory: chest non-tender, no respiratory distress, no accessory muscle use Cardiovascular: normal peripheral pulses, regular rate, rhythm, no edema Peripheral Pulses: 2+ Dorsalis Pedis (R), 2+ Left Dors-Pedis (L), 2+ Radial Pulses (R), 2+ Radial Pulses (L) Gastrointestinal: normal bowel sounds, non tender, soft, no organomegaly Genital/Rectal: normal genital exam, other (right inguinal canal with soft fluctuant, tender nonerythematous nonpulsatile mass consistent with a inguinal hernia that does not reduce.) Extremities: no pedal edema, normal capillary refill Neurologic/Psychiatric: alert, oriented x 3 Focused Exam Time of Focused Exam: 06:16 Respiratory: Chest Non Tender, Lungs Clear, Normal Breath Sounds, No Accessory Muscle Use, No Respiratory Distress Cardiovascular: Regular Rate, Rhythm, No Edema, No Murmur, Normal Peripheral Pulses Capillary Refill: Less Than 3 Seconds Peripheral Pulses: 2+ Dorsalis Pedis (R), 2+ Left Dors-Pedis (L) Skin: normal color, warm/dry Progress/Results/Core Measures Results/Orders Lab Results Laboratory Tests Test 06/22/17 04:21 06/22/17 05:01 06/22/17 05:54 Range/Units White Blood Count 8.7 4.3-11.0 10^3/uL Red Blood Count 4.31 L 4.35-5.85 10^6/uL Hemoglobin 13.3 13.3-17.7 G/DL Hematocrit 38 L 40-54 % Mean Corpuscular Volume 87 80-99 FL Mean Corpuscular Hemoglobin 31 25-34 PG Mean Corpuscular Hemoglobin Concent 35 32-36 G/DL Red Cell Distribution Width 13.2 10.0-14.5 % Platelet Count 363 130-400 10^3/uL Mean Platelet Volume 10.0 7.4-10.4 FL Neutrophils (%) (Auto) 82 H 42-75 % Lymphocytes (%) (Auto) 13 12-44 % Monocytes (%) (Auto) 5 0-12 % Eosinophils (%) (Auto) 0 0-10 % Basophils (%) (Auto) 0 0-10 % Neutrophils # (Auto) 7.1 1.8-7.8 X 10^3 Lymphocytes # (Auto) 1.1 1.0-4.0 X 10^3 Monocytes # (Auto) 0.4 0.0-1.0 X 10^3 Eosinophils # (Auto) 0.0 0.0-0.3 10^3/uL Basophils # (Auto) 0.0 0.0-0.1 10^3/uL Prothrombin Time 12.3 12.2-14.7 SEC INR Comment 0.9 0.8-1.4 Activated Partial Thromboplast Time 25 24-35 SEC Sodium Level 130 L 135-145 MMOL/L Potassium Level 4.7 3.6-5.0 MMOL/L Chloride Level 96 L 98-107 MMOL/L Carbon Dioxide Level 20 L 21-32 MMOL/L Anion Gap 14 5-14 MMOL/L Blood Urea Nitrogen 21 H 7-18 MG/DL Creatinine 1.34 H 0.60-1.30 MG/DL Estimat Glomerular Filtration Rate 55 BUN/Creatinine Ratio 16 Glucose Level 796 *H 70-105 MG/DL Calcium Level 9.0 8.5-10.1 MG/DL Total Bilirubin 0.4 0.1-1.0 MG/DL Aspartate Amino Transf (AST/SGOT) 109 H 5-34 U/L Alanine Aminotransferase (ALT/SGPT) 88 H 0-55 U/L Alkaline Phosphatase 92 40-136 U/L Total Protein 5.9 L 6.4-8.2 GM/DL Albumin 3.4 3.2-4.5 GM/DL Urine Color YELLOW Urine Clarity CLEAR Urine pH 6 5-9 Urine Specific [place] 1.010 L 1.016-1.022 Urine Protein NEGATIVE NEGATIVE Urine Glucose (UA) 4+ H NEGATIVE Urine Ketones 2+ H NEGATIVE Urine Nitrite NEGATIVE NEGATIVE Urine Bilirubin NEGATIVE NEGATIVE Urine Urobilinogen NORMAL NORMAL MG/DL Urine Leukocyte Esterase NEGATIVE NEGATIVE Urine RBC (Auto) NEGATIVE NEGATIVE Urine RBC NONE /HPF Urine WBC NONE /HPF Urine Squamous Epithelial Cells 0-2 /HPF Urine Crystals NONE /LPF Urine Bacteria NEGATIVE /HPF Urine Casts NONE /LPF Urine Mucus NEGATIVE /LPF Urine Culture Indicated NO Magnesium Level 1.8 1.8-2.4 MG/DL TSH [place] Testing 1.43 0.35-4.94 UIU/ML Glucometer 385 H 70-110 MG/DL My Orders Orders - KARINA BILLINGSLEY Ketorolac Injection (Toradol Injection) (06/22/17 04:15) Cbc With Automated Diff (06/22/17 04:18) Comprehensive Metabolic Panel (06/22/17 04:18) Saline Lock/Iv-Start (06/22/17 04:18) Ketorolac Injection (Toradol Injection) (06/22/17 04:30) Ua Culture If Indicated (06/22/17 04:58) Magnesium (06/22/17 04:58) Arterial Blood Gas (06/22/17 04:58) Saline Lock/Iv-Start (06/22/17 04:58) Ns Iv 1000 Ml (Sodium Chloride 0.9%) (06/22/17 04:58) Lactic Acid Analyzer (06/22/17 04:58) Blood Culture (06/22/17 04:58) Protime With Inr (06/22/17 04:58) Partial Thromboplastin Time (06/22/17 04:58) Chest 1 View, Ap/Pa Only (06/22/17 04:58) O2 (06/22/17 04:58) Saline Lock/Iv-Start (06/22/17 04:58) Saline Lock/Iv-Start (06/22/17 04:58) Vital Signs Adult Sepsis Patie Q1H (06/22/17 04:58) Remove Rings In Anticipation O (06/22/17 04:58) Thyroid Analyzer (06/22/17 04:58) Ns Iv 1000 Ml (Sodium Chloride 0.9%) (06/22/17 05:00) Insulin (Regular) Human (Humulin R (Per (06/22/17 05:00) Us Abdomen Limited [id number] (06/22/17 04:11) Accucheck Stat ONCE (06/22/17 05:51) Medications Given in ED Current Medications Medications Dose Ordered Sig/Chirag Route Start Time Stop Time Status Last Admin Dose Admin Insulin Human Regular 10 unit ONCE ONCE IV 06/22/17 05:00 06/22/17 05:02 DC 06/22/17 05:26 10 UNIT Ketorolac Tromethamine 15 mg ONCE ONCE IVP 06/22/17 04:30 06/22/17 04:31 DC 06/22/17 04:22 15 MG Sodium Chloride 1,000 ml @ 0 mls/hr Q0M ONCE IV 06/22/17 04:58 06/22/17 05:02 DC 06/22/17 05:26 1,000 MLS/HR Vital Signs/I&O Vital Sign - Last 12Hours 06/22/17 03:48 Temp 96.9 Pulse 83 Resp 20 B/P (MAP) 137/80 (99) Pulse Ox 97 O2 Delivery Room Air Blood Pressure Mean: 99 Progress Note #1: Time: 04:16 Progress Note We'll get some blood work and ultrasound of his probable inguinal hernia to make sure it is not incarcerated. The fact that he's had a bowel movement immediately after it formed does not immediately rule out obstruction or strangulation. We'll get some blood work as well as case he needs to go to surgery. Will use Toradol for pain initially. Otherwise can probably follow up outpatient with the surgeon. Progress Note #2: Time: 05:06 Progress Note Blood work was obtained in the event the patient would need a surgery or his possible incarcerated inguinal hernia. This revealed that he has a blood sugar above 700 and he has complained for the last 4 weeks of having some thirst and frequency of urine but no history of diabetes. We will work him up for possible DKA to include an ABG, urine studies and give him 10 units of regular insulin as his potassium is 4.7. We will give him 2 L of fluid bolus to start. Being that is a 3 day weekend he may benefit from an inpatient stay to workup and management as hyperglycemia if it is DKA or hyperosmolar hyperglycemia glycemia. Diagnostic Imaging Diagonstic Imaging: Ultrasound Plain Films/CT/US/NM/MRI: other (right inguinal/scrotal) Comments Right inguinal hernia containing bowel no evidence of incarceration or strangulation or fluid collection. Reviewed: Reviewed [place] Study, Reviewed by Me Departure Communication (Admissions) Time/Spoke to Admitting Phy: 06:12 Communication Discussed case lab imaging and findings with Dr. Pan and she is okay to see the patient. ICU and DKA protocol. Impression Impression: Primary Impression: Diabetic ketoacidosis without coma Qualified Codes: E13.10 - Other specified diabetes mellitus with ketoacidosis without coma Additional Impression: Right inguinal hernia Disposition: ADMITTED INPATIENT Condition: Improved Admissions Decision to Admit Reason: Admit from ER (General) Decision to Admit/Date: Jun 22, 2017 Time/Decision to Admit Time: 06:16 Departure-Patient Inst. Referrals: RACHAEL ALEXANDER MD (PCP/Family) Primary Care Physician KARINA BILLINGSLEY Jun 22, 2017 04:18
[2017-06-22 04:27] LABS: BASOPHILS % (AUTO) 0 % (0-10); EOSINOPHILS % (AUTO) 0 % (0-10); HEMATOCRIT 38 % (40-54); HEMOGLOBIN 13.3 G/DL (13.3-17.7); LYMPHOCYTES # (AUTO) 1.1 X 10^3 (1.0-4.0); LYMPHOCYTES % (AUTO) 13 % (12-44); MEAN CORPUSCULAR HEMOGLOBIN 31 PG (25-34); MEAN CORPUSCULAR HGB CONC 35 G/DL (32-36); MEAN CORPUSCULAR VOLUME 87 FL (80-99); MONOCYTES # (AUTO) 0.4 X 10^3 (0.0-1.0); MONOCYTES % (AUTO) 5 % (0-12); NEUTROPHILS # (AUTO) 7.1 X 10^3 (1.8-7.8); NEUTROPHILS % (AUTO) 82 % (42-75); PLATELET COUNT 363 10^3/uL (130-400); RED BLOOD COUNT 4.31 10^6/uL (4.35-5.85); RED CELL DISTRIBUTION WIDTH 13.2 % (10.0-14.5); WHITE BLOOD COUNT 8.7 10^3/uL (4.3-11.0)
[2017-06-22] MEDS ORDERED: KETOROLAC 30 MG/ML VIAL IVP ONE (04:30)
[2017-06-22 04:49] LABS: CREATININE SERUM 1.34 MG/DL (0.60-1.30); POTASSIUM 4.7 MMOL/L (3.6-5.0)
[2017-06-22 04:50] LABS: ALBUMIN 3.4 GM/DL (3.2-4.5); BILIRUBIN,TOTAL 0.4 MG/DL (0.1-1.0); TOTAL PROTEIN 5.9 GM/DL (6.4-8.2)
[2017-06-22] MEDS ORDERED: NS IV 1000 ML 1,000 ML IV ONE (04:58)
[2017-06-22] MEDS ORDERED: inSUlin (REGULAR) HUMAN 1 UNIT/0.01 ML (CHARGE PER UNIT) IV ONE (05:00)
[2017-06-22] MEDS ORDERED: NS IV 1000 ML 1,000 ML IV SCH (05:00)
[2017-06-22 05:10] LABS: BILIRUBIN,URINE NEGATIVE (NEGATIVE); CLARITY,URINE CLEAR; COLOR,URINE YELLOW; GLUCOSE, URINE (UA) 4+ (NEGATIVE); KETONES,URINE 2+ (NEGATIVE); LEUKOCYTE ESTERASE ,URINE NEGATIVE (NEGATIVE); NITRITE,URINE NEGATIVE (NEGATIVE); PH,URINE 6 (5-9); PROTEIN,URINE NEGATIVE (NEGATIVE); UROBILINOGEN,URINE NORMAL (NORMAL)
[2017-06-22 05:12] LABS: INR 0.9 (0.8-1.4); PROTHROMBIN TIME PATIENT 12.3 SEC (12.2-14.7)
[2017-06-22 05:16] LABS: BACTERIA,URINE NEGATIVE /HPF; SQUAMOUS EPITHELIAL CELL,UR 0-2 /HPF
[2017-06-22 05:20] LABS: MAGNESIUM 1.8 MG/DL (1.8-2.4)
[2017-06-22 05:46] LABS: TSH (THYROID ANALYZER) 1.43 UIU/ML (0.35-4.94)
[2017-06-22 06:33] LABS: ABG OXYGEN SATURATION 85 % (94-100); ABG PCO2 33 MMHG (35-45); ABG PO2 44 MMHG (79-93)
[2017-06-22 06:34] LABS: ALLENS TEST YES-POS; INSPIRED O2 ROOM AIR; PATIENT TEMP 98.1; VENTILATOR NO
--- NOTE | 2017-06-22 06:58 | Diagnostic Imaging Report ---
PROCEDURE: US Abdomen, limited. TECHNIQUE: Multiple realtime grayscale images were obtained over the abdomen in various projections. INDICATION: Mass There are no prior studies available for comparison. There is a soft tissue density in the right inguinal canal. This does show peristalsis and most likely this is related to a segment of bowel which has extended into the inguinal canal. If further imaging is desired, CT would be recommended. IMPRESSION: The findings do indicate that there is now a segment of bowel extending into the inguinal canal. Clinical followup is recommended. Dictated by: Dictated on workstation # [id number]
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
--- NOTE | 2017-06-22 07:23 | Diagnostic Imaging Report ---
EXAMINATION: Portable erect AP chest at 605. INDICATION: Respiratory distress. The heart size is within normal limits and stable when compared to 06/28/2015. The hilar vessels are somewhat prominent but no different than on the prior exam. The lungs remain clear. There is no sign of failure, pneumonia or a pleural effusion to suggest an acute CT. The mediastinum is not widened. The osseous structures are intact. IMPRESSION: 1. There is no evidence for an acute cardiopulmonary abnormality. Dictated by: Dictated on workstation # [id number]
[2017-06-22] MEDS ORDERED: 1/2 NS W/KCL 20 MEQ/L 1,000 ML IV SCH (08:41)
[2017-06-22] MEDS ORDERED: DEXTROSE 10% IV SOLUTION 1,000 ML IV SCH (08:41)
[2017-06-22] MEDS ORDERED: D5 1/2 NS W/KCL 20 MEQ/L 1,000 ML IV SCH (08:41)
[2017-06-22] MEDS ORDERED: ACETAMINOPHEN 500 MG TAB (TYLENOL) PO PRN (08:45)
[2017-06-22] MEDS ORDERED: ONDANSETRON 4 MG/2 ML (SDV) Z0FRAN IV PRN (08:45)
[2017-06-22] MEDS ORDERED: inSUlin REGULAR TPN/DRIP ONLY 250 UNITS in NORMAL SALINE 250 ML IV SCH (08:45)
[2017-06-22 09:21] LABS: BUN/CREATININE RATIO 20; CARBON DIOXIDE 19 MMOL/L (21-32); CHLORIDE 104 MMOL/L (98-107); GFR ESTIMATED > 60; GLUCOSE 280 MG/DL (70-105); POTASSIUM 4.2 MMOL/L (3.6-5.0); SODIUM 135 MMOL/L (135-145)
[2017-06-22 10:55] LABS: BUN/CREATININE RATIO 19; CARBON DIOXIDE 19 MMOL/L (21-32); CHLORIDE 106 MMOL/L (98-107); GFR ESTIMATED > 60; GLUCOSE 232 MG/DL (70-105); POTASSIUM 3.8 MMOL/L (3.6-5.0); SODIUM 135 MMOL/L (135-145)
[2017-06-22] MEDS ORDERED: FOLI1TAB6 PO (11:47)
[2017-06-22] MEDS ORDERED: CYAN250010 PO (11:47)
[2017-06-22] MEDS ORDERED: MULT-1073 PO (11:47)
[2017-06-22] MEDS ORDERED: glyBURIDE 2.5 MG (MICRONASE) TAB PO NR (12:04)
[2017-06-22] MEDS ORDERED: GLYB1.253 PO (13:06)
--- NOTE | 2017-06-22 13:07 | Short Stay Summary-Hospitalist ---
HPI History of Present Illness: HPI/Chief Complaint CC: Severe hyperglycemia with new onset diabetes with hemoglobin A1c of 14 HPI: This is a 57-year-old white male but hasn't seen Dr. Rico for 2 years who presents to the ER after he was walking up the steps at his house in the middle of the night felt his right groin pop and immediately saw a mass with pain he was assessed to have an inguinal hernia without incarceration but labs were drawn by the ER doctor revealing blood sugar elevated at 796 without history of diabetes. He had trace ketones in urine and bicarbonate was low limits of normal so he was placed on insulin drip and on protocol and due to the fact that he refused to even contemplate insulin initiation the insulin drip was discontinued patient was placed on glyburide 2 mg and will monitor patient closely through the afternoon and evaluate whether or not he can go home as long as these does not become acidotic. He does not appear to be type I diabetic this is simply type II diabetes with major noncompliance with preventive care in the past. Source: patient Exam Limitations: no limitations Date Seen 06/22/17 Time Seen by Provider: 12:00 Attending Physician Gildardo Rico MD PCP Gildardo Rico MD Referring Physician Date of Admission Jun 22, 2017 at 07:03 Home Medications & Allergies Home Medications Reviewed patient Home Medication Reconciliation Form Allergies Allergies Coded Allergies Penicillins (Unverified Allergy, Mild, 05/29/09) Past Tszsuyo-Klqtkr-Hkmtut Hx Patient Social History Marrital Status: single Employed/Student: unemployed (since 2002) Alcohol Use: Denies Use Recreational Drug Use: No Smoking Status: Never a Smoker Type Used: Smokeless Tobacco Recent Foreign Travel: No Contact w/other who traveled: No Recent Hopitalizations: No Recent Infectious Disease Expo: No Seasonal Allergies Seasonal Allergies: No Surgeries Yes (BILATERAL SHOULDER) Orthopedic Respiratory Yes COPD Cardiovascular Yes High Cholesterol Neurological No Reproductive System Hx Reproductive Disorders: No Gastrointestinal Yes Gastroesophageal Reflux Musculoskeletal Yes (CHRONIC BACK, SHOULDER PAIN, rupture disc) Chronic Back Pain Endocrine History of Endocrine Disorders: Yes Endocrine Disorders: Diabetes, Non-Insulin dep Cancer No Psychosocial History of Psychiatric Problem: No Integumentary History of Skin or Integumenta: No Blood Transfusions History of Blood Disorders: Yes (ANEMIA-GI BLEED) Adverse Reaction to a Blood Tr: No Family Medical History Family Hx: Unknown Review of Systems Constitutional: see HPI EENTM: no symptoms reported Respiratory: no symptoms reported Cardiovascular: no symptoms reported Gastrointestinal: abdominal pain (RLQ) Genitourinary: no symptoms reported Musculoskeletal: no symptoms reported Skin: no symptoms reported Psychiatric/Neurological: No Symptoms Reported All Other Systems Reviewed Negative Unless Noted: Yes Physical Exam Physical Exam Vital Signs Vital Sign - Last 12Hours 06/22/17 03:48 Temp 96.9 Pulse 83 Resp 20 B/P (MAP) 137/80 (99) Pulse Ox 97 O2 Delivery Room Air Capillary Refill : Less Than 3 Seconds General Appearance: No Apparent Distress, WD/WN, Chronically ill, Thin Eyes: Bilateral Eye Normal Inspection, Bilateral Eye PERRL HEENT: PERRL/EOMI, Normal ENT Inspection, Pharynx Normal Neck: Full Range of Motion, Normal Inspection, Non Tender, Supple, Carotid Bruit Respiratory: Chest Non Tender, Lungs Clear, Normal Breath Sounds, No Accessory Muscle Use, No Respiratory Distress Cardiovascular: Regular Rate, Rhythm, No Edema, No Gallop, No JVD, No Murmur, Normal Peripheral Pulses Gastrointestinal: Normal Bowel Sounds, No Organomegaly, No Pulsatile Mass, Non Tender, Soft Back: Normal Inspection, No CVA Tenderness, No Vertebral Tenderness Extremity: Normal Capillary Refill, Normal Inspection, Normal Range of Motion, Non Tender, No Calf Tenderness, No Pedal Edema Neurologic/Psychiatric: Alert, Oriented x3, No Motor/Sensory Deficits, Normal Mood/Affect Skin: Normal Color, Warm/Dry Lymphatic: No Adenopathy Results Results/Procedures Lab Laboratory Tests 06/22/17 04:21 06/22/17 08:59 06/22/17 10:27 Short Stay Diagnosis Discharge Diagnosis-Short Stay Admission Diagnosis Assessment: Acute inguinal hernia consulting general surgery but not a surgical emergency New onset diabetes mellitus with blood sugar of 796 and hemoglobin A1c of greater than 14.5 Frail status Final Discharge Diagnosis Assessment: Acute inguinal hernia consulting general surgery but not a surgical emergency New onset diabetes mellitus with blood sugar of 796 and hemoglobin A1c of greater than 14.5 Frail status Conclusion Plan Plan: DC insulin drip Begin glyburide 2 mg by mouth 1 now Monitor follow-up BNP and glucometer checks Follow-up with PCP next week Dr. Bosch consultation for inguinal hernia repair as an outpatient MARCO MEDINA DO Jun 22, 2017 13:07
[2017-06-22 14:35] LABS: BUN/CREATININE RATIO 19; CARBON DIOXIDE 20 MMOL/L (21-32); CHLORIDE 103 MMOL/L (98-107); CREATININE SERUM 0.88 MG/DL (0.60-1.30); GFR ESTIMATED > 60; POTASSIUM 4.4 MMOL/L (3.6-5.0); SODIUM 133 MMOL/L (135-145)
[2017-06-22 14:37] LABS: GLUCOSE 415 MG/DL (70-105)
[2017-06-22] MEDS ORDERED: INSU100V3 IJ (14:47)
[2017-06-22] MEDS ORDERED: inSUlin (REGULAR) HUMAN 1 UNIT/0.01 ML (CHARGE PER UNIT) SC ONE (15:15)
[2017-06-22] MEDS ORDERED: INFLUENZA TRIvalent 2017-2018 0.5 ML/45 MCG SYR IM ONE (15:15)
--- NOTE | 2017-06-22 15:39 | Consultation ---
History of Present Illness History of Present Illness Patient Consulted On(ann/time) 06/22/17 11:33 Date Seen by Provider: Jun 22, 2017 Time Seen by Provider: 11:33 History of Present Illness Consult requested by Dr. Pan for right inguinal hernia. Patient is a 57 year old male who was walking bags up stairs last night when felt a pop in the right groin. He instantly noticed a bulge in the right groin area. He was having pain where the bulge was with no radiation of pain. Nothing was making better and movement made it worse. Patient went to the emergency room for further evaluation. His blood sugars were elevated he states and he was admitted. Patient states he does have some tenderness still in the right groin but it is better. Denies n/v fever sweats chills shortness of breath or chest pain. Allergies and Home Medications Allergies Coded Allergies: Penicillins (Unverified Allergy, Mild, 05/29/09) Home Medications Cyanocobalamin (Vitamin B-12) 2,500 Mcg Tablet, 2,500 MCG PO DAILY, (Reported) Insulin Regular, Human 1,000 Units/10 Ml Soln, 8 UNITS IJ AC, #1 Prescribed by: MARCO PAN on 06/22/17 1447 Multivit,Calc,Mins/Iron/Folic 1 Each Tablet, 1 EACH PO TID, (Reported) Multivitamin/Iron/Folic Acid 1 Each Tablet, 1 EACH PO TID, (Reported) Ranitidine HCl 150 Mg Tablet, 1 TAB PO BID PRN for acid reflex, #60 (Reported) Past Nnprftd-Pnnaeb-Fyfovu Hx Patient Social History Alcohol Use: Denies Use Recreational Drug Use: No Smoking Status: Never a Smoker Type Used: Smokeless Tobacco Recent Foreign Travel: No Contact w/Someone Who Travel: No Recent Infectious Disease Expo: No Recent Hopitalizations: No Physical Abuse Screen: No Sexual Abuse: No Seasonal Allergies Seasonal Allergies: No Surgeries History of Surgeries: Yes (BILATERAL SHOULDER) Surgeries: Orthopedic Respiratory History of Respiratory Disorde: Yes (Asthma as a child) Respiratory Disorders: Asthma Cardiovascular History of Cardiac Disorders: No Cardiac Disorders: High Cholesterol Neurological History of Neurological Disord: No Reproductive System Hx Reproductive Disorders: No Genitourinary History of Genitourinary Disor: No Gastrointestinal History of Gastrointestinal Di: Yes Gastrointestinal Disorders: Gastroesophageal Reflux Musculoskeletal History of Musculoskeletal Dis: Yes (CHRONIC BACK, SHOULDER PAIN, rupture disc) Musculoskeletal Disorders: Arthritis, Chronic Back Pain Endocrine History of Endocrine Disorders: Yes (Hbg A1C >14.5) Endocrine Disorders: Diabetes, Non-Insulin dep HEENT History of HEENT Disorders: No Cancer History of Cancer: No Psychosocial History of Psychiatric Problem: No Integumentary History of Skin or Integumenta: No Blood Transfusions History of Blood Disorders: Yes (ANEMIA-GI BLEED) Adverse Reaction to a Blood Tr: No Family Medical History Significant Family History: No Pertinent Family Hx Family Medial History: Unknown Review of Systems-General Constitutional: no symptoms reported EENTM: no symptoms reported Respiratory: no symptoms reported Cardiovascular: no symptoms reported Gastrointestinal: RLQ, see HPI Musculoskeletal: no symptoms reported Skin: no symptoms reported Psychiatric/Neurological: No Symptoms Reported Physical Exam-General Problems Physical Exam Vital Signs Vital Sign - Last 12Hours 06/22/17 03:48 Temp 96.9 Pulse 83 Resp 20 B/P (MAP) 137/80 (99) Pulse Ox 97 O2 Delivery Room Air Capillary Refill : Less Than 3 Seconds General Appearance: no apparent distress HEENT: PERRL/EOMI, normal ENT inspection Neck: full range of motion, supple Respiratory: no respiratory distress Cardiovascular: regular rate, rhythm Gastrointestinal: soft, hernia (right inguinal, reducible, tender) Rectal: deferred Back: normal inspection Extremities: non-tender, normal inspection 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, alert, normal mood/affect, oriented x 3 Skin: warm/dry Data Review Labs Laboratory Tests 06/22/17 04:21: White Blood Count 8.7, Red Blood Count 4.31L, Hemoglobin 13.3, Hematocrit 38L, Mean Corpuscular Volume 87, Mean Corpuscular Hemoglobin 31, Mean Corpuscular Hemoglobin Concent 35, Red Cell Distribution Width 13.2, Platelet Count 363, Mean Platelet Volume 10.0, Neutrophils (%) (Auto) 82H, Lymphocytes (%) (Auto) 13 , Monocytes (%) (Auto) 5, Eosinophils (%) (Auto) 0, Basophils (%) (Auto) 0, Neutrophils # (Auto) 7.1, Lymphocytes # (Auto) 1.1, Monocytes # (Auto) 0.4, Eosinophils # (Auto) 0.0, Basophils # (Auto) 0.0, Prothrombin Time 12.3, INR Comment 0.9, Activated Partial Thromboplast Time 25, Sodium Level 130L, Potassium Level 4.7, Chloride Level 96L, Carbon Dioxide Level 20L, Anion Gap 14 , Blood Urea Nitrogen 21H, Creatinine 1.34H, Estimat Glomerular Filtration Rate 55, BUN/Creatinine Ratio 16, Glucose Level 796*H, Hemoglobin A1c > 14.5H, Calcium Level 9.0, Total Bilirubin 0.4, Aspartate Amino Transf (AST/SGOT) 109H, Alanine Aminotransferase (ALT/SGPT) 88H, Alkaline Phosphatase 92, Total Protein 5.9L, Albumin 3.4 06/22/17 05:01: Urine Color YELLOW, Urine Clarity CLEAR, Urine pH 6, Urine Specific [place] 1.010L, Urine Protein NEGATIVE, Urine Glucose (UA) 4+H, Urine Ketones 2+H, Urine Nitrite NEGATIVE, Urine Bilirubin NEGATIVE, Urine Urobilinogen NORMAL, Urine Leukocyte Esterase NEGATIVE, Urine RBC (Auto) NEGATIVE, Urine RBC NONE, Urine WBC NONE, Urine Squamous Epithelial Cells 0-2, Urine Crystals NONE, Urine Bacteria NEGATIVE, Urine Casts NONE, Urine Mucus NEGATIVE, Urine Culture Indicated NO, Magnesium Level 1.8, TSH [place] Testing 1.43 06/22/17 05:54: Glucometer 385H 06/22/17 06:23: Blood Gas Puncture Site LEFT RADIAL, Blood Gas Patient Temperature 98.1, Arterial Blood pH 7.40, Arterial Blood Partial Pressure CO2 33L, Arterial Blood Partial Pressure O2 44L, Arterial Blood HCO3 20L, Arterial Blood Total CO2 21.0 , Arterial Blood Oxygen Saturation 85L, Arterial Blood Base Excess -4.0L, [place] Test YES-POS, Blood Gas Ventilator Setting NO, Blood Gas Inspired Oxygen ROOM AIR 06/22/17 06:26: Lactic Acid Level 2.11*H 06/22/17 08:11: Lactic Acid Level 1.19 06/22/17 08:15: Glucometer 230H 06/22/17 08:59: Sodium Level 135, Potassium Level 4.2, Chloride Level 104, Carbon Dioxide Level 19L, Anion Gap 12, Blood Urea Nitrogen 16, Creatinine 0.80, Estimat Glomerular Filtration Rate > 60, BUN/Creatinine Ratio 20, Glucose Level 280H, Calcium Level 8.0L 06/22/17 10:19: Glucometer 191H 06/22/17 10:27: Sodium Level 135, Potassium Level 3.8, Chloride Level 106, Carbon Dioxide Level 19L, Anion Gap 10, Blood Urea Nitrogen 15, Creatinine 0.80, Estimat Glomerular Filtration Rate > 60, BUN/Creatinine Ratio 19, Glucose Level 232H, Calcium Level 8.0L 06/22/17 11:15: Glucometer 141H 06/22/17 12:13: Glucometer 111H 06/22/17 13:32: Glucometer 342H 06/22/17 14:14: Sodium Level 133L, Potassium Level 4.4, Chloride Level 103, Carbon Dioxide Level 20L, Anion Gap 10, Blood Urea Nitrogen 17, Creatinine 0.88, Estimat Glomerular Filtration Rate > 60, BUN/Creatinine Ratio 19, Glucose Level 415*H, Calcium Level 8.0L 06/22/17 14:29: Glucometer 355H Assessment/Plan Assessment/Plan Assessment/Plan right inguinal hernia- reducible will plan follow up in 1-2 weeks and then plan for surgical intervention dm-medical management will follow up with him outpatient. If pops out and unable to be reduced patient to be seen at that time Clinical Quality Measures DVT/VTE Risk/Contraindication: Risk Factor Score Per Nursin RFS Level Per Nursing on Admit: 1=Low/No VTE PPX ARNIE ARMENTA DO Jun 22, 2017 15:39
[2017-06-22] MEDS ORDERED: FAMOTIDINE 20 MG (PEPCID) TABLET PO PRN (21:00)
[2017-06-23] MEDS ORDERED: glyBURIDE 2.5 MG (MICRONASE) TAB PO SCH (06:30)
== END 2017-06-22 17:45 | disposition home or self-care (01) | DRG 393 ==
LOC: EDUNIT# 03:37 → ER 03:42 → ICU 07:03
PROVIDERS: ADMIT Internal Medicine; ATTEND Family Medicine
DX: K40.90 Unilateral inguinal hernia, without obstruction or gangrene, not specified as recurrent (principal); E11.10 Type 2 diabetes mellitus with ketoacidosis without coma; J45.909 Unspecified asthma, uncomplicated; E78.00 Pure hypercholesterolemia, unspecified; K21.9 Gastro-esophageal reflux disease without esophagitis; Z23 Encounter for immunization
CPT/HCPCS: 36415; 71010; 76705; 80048; 80053; 81000; 82805; 82962; 83036; 83605; 83735; 84443; 85025; 85027; 85610; 85730; 87040

== ENCOUNTER → 2017-07-10 | Outpatient (CLI) | payer SELFPAY ==
[~2017-07-10] MED LIST changes: +CYAN250010 PO; +FOLI1TAB6 PO; +GLYB1.253 PO; +INSU100V3 IJ; +MULT-1073 PO
== END ==
LOC: PREOP 05:27
PROVIDERS: ATTEND Surgery
DX: Z01.818 Encounter for other preprocedural examination (principal); K40.90 Unilateral inguinal hernia, without obstruction or gangrene, not specified as recurrent